=== PATIENT | female | born 1960 | race African-American/Black ===

== ENCOUNTER 2016-08-13 19:14 | Emergency (ER) | payer BC, OTHER ==
[~2016-08-13] VITALS: Ht 167.6 cm; Wt 98.0 kg
[~2016-08-13 19:14] MED LIST: CIME200 PO; CLIN1CAP6 PO; FEXO180 PO; GLIP1TAB49 PO; GLUCTAB PO; HYDR25TA5 PO; METO50TA PO; PERC10TA27 PO; PERC5TAB12 PO; POTA-243 PO; SIMV20TA PO; TAB-TAB PO
[2016-08-13 19:17] VITALS: BP 129/67; PULSE 90; RESP 18; TEMP 102.8; O2SAT 94
--- NOTE | 2016-08-13 19:40 | PD ---
HPI Chief Complaint: Headache Time Seen by Provider: 19:37 Travel History International Travel<30 days: No Contact w/Intl Traveler<30days: No Traveled to known affect area: No History of Present Illness HPI 55-year-old black female presents to emergency department with a three-day history of fever and chills, headache, slight cough, nausea, myalgias, arthralgias and generalized malaise. She has not taken anything today for her fever. She denies any ear pain or sore throat. No shortness of breath or wheezing. No cough, vomiting, abdominal pain, dysuria or frequency. No rashes or lesions. She is a diabetic. Her blood sugars were less than 200 earlier today. She denies any focal numbness, tingling or weakness. PFSH Past Medical History Narrative Medical Right breast cancer, chemotherapy, radiation with mastectomy, hypertension, hypercholesterolemia, diabetes, GERD Blood Disorders: No Cancer: Yes (RIGHT BREAST) Cardiovascular Problems: No Chemotherapy: Yes (LAST 2006) Diabetes: Yes Patient Takes Glucophage: Yes Diminished Hearing: No Endocrine: Yes Gastrointestinal Disorders: Yes (GERD) GERD: Yes Genitourinary: No Hepatitis: No Hiatal Hernia: No Hypertension: Yes Immune Disorder: No Musculoskeletal: Yes (ARTHRITIS, PAINFUL LEFT KNEE) Neurologic: Yes (NEUROPATHY FEET) Psychiatric: Yes (CLAUSTRAPHOBIA, PANIC ATTACKS) Reproductive: No Respiratory: No Radiation Therapy: Yes (LAST REC'D 12/21) Thyroid Disease: No Ulcer: Yes Tetanus Vaccination: Unknown ?: Not Menopausal: Yes Tubal Ligation: Yes Past Surgical History AICD: No Body Medical Devices: INFUSE A PORT Section: Yes (X2) Gynecologic Surgery: Yes (TUBAL LIG., X 2) Joint Replacement: No Pacemaker: No Other Surgery: Yes (R MASTECTOMY 2006, INFUSAPORT IN PLACE LEFT UPPER CHEST) Social History Alcohol Use: No Tobacco Use: No Substance Use: No Allergies-Medications (Allergen,Severity, Reaction): Coded Allergies: Aspirin (Verified Allergy, Severe, NONE DUE TO COUMADIN, 08/13/16) pt says she get n/v and upset stomach Lortab (Verified Allergy, Severe, VOMITING, 08/13/16) Morphine (Verified Allergy, Severe, VOMITING, 08/13/16) Reported Meds & Prescriptions Reported Meds & Active Scripts Active Percocet (Oxycodone-Acetaminophen) 5-325 mg Tab 2 Tab PO Q6H PRN Clindamycin (Clindamycin HCl) 300 Mg Cap 300 Mg PO Q6H Continue until swelling has resolved Hydrochlorothiazide 25 Mg Tab 25 Mg PO DAILY Glucophage XR (Metformin HCl) 500 Mg Lucrecia 500 Mg PO BID Metoprolol Tartrate 50 Mg Tab 50 Mg PO BID Simvastatin 20 Mg Tab 20 Mg PO DAILY Klor-Con 10 (Potassium Chloride) 10 Meq Tab 10 Meq PO DAILY Review of Systems Except as stated in HPI: all other systems reviewed are Neg Physical Exam Narrative GENERAL: Well-developed, well-nourished in no apparent distress. Nontoxic appearing. HEAD: Normocephalic, atraumatic. No pain on percussion of the sinuses. EYES: Pupils equal round and reactive. Extraocular motions intact. No scleral icterus. No injection or drainage. ENT: Nose clear. Throat without erythema, tonsillar hypertrophy or exudate. Uvula midline. Airway patent. NECK: Trachea midline. Supple, nontender, moves head freely. No central bony tenderness or spasm. No rigidity. CARDIOVASCULAR: Regular rate and rhythm without murmurs, gallops, or rubs. RESPIRATORY: Clear to auscultation. Breath sounds equal bilaterally. No wheezes , rales, or rhonchi. GASTROINTESTINAL: Abdomen soft, non-tender, nondistended. No hepato-splenomegaly , or palpable masses. No guarding. EXTREMITIES: No clubbing, cyanosis, or edema. No joint tenderness. BACK: Nontender without deformity. No flank tenderness. NEUROLOGICAL: Awake, alert and oriented x 3 .Cranial nerves grossly intact. Motor and sensory grossly within normal limits. Normal speech. Data Data Last Documented VS Vital Signs Date Time Temp Pulse Resp B/P Pulse Ox O2 Delivery O2 Flow Rate FiO2 08/13/16 20:40 100.8 08/13/16 19:24 90 18 94 Room Air 08/13/16 19:17 129/67 Orders Influenzae A/B Antigen (08/13/16 19:35) Ibuprofen (Motrin) (08/13/16 19:45) MDM Medical Decision Making Medical Screen Exam Complete: Yes Emergency Medical Condition: Yes Medical Record Reviewed: Yes Interpretation(s) Influenza: Negative Differential Diagnosis MDM: High Differential diagnoses: Meningitis, migraine, tension headache influenza, bronchitis, URI Narrative Course Patient's exam and history is inconsistent with meningitis. She appears to have a viral process. She has not taking anything for her fever today. She states that aspirin at substance or stomach. She does not have any respiratory issues with aspirin. She will be given Motrin 800 mg by mouth and influenza swab will be performed. The patient's temperature is coming down. She states her headache is only minimally improved. Her is now present and states that he is concerned that she may have low potassium. He states that she has had low potassium multiple times in the past. I've agreed to give her 40 mEq of potassium by mouth now and one Percocet. She states that she is allergic to hydrocodone but can take Percocet. This acute febrile illness, cephalgia Diagnosis Primary Impression: Acute febrile illness Additional Impression: Cephalgia Qualified Code: R51 - Acute nonintractable headache, unspecified headache type Patient Instructions: General Instructions Additional Instructions: Rest. Increase fluids. Alternate Tylenol and ibuprofen every 4 hours for the next 1-2 days. Recheck with your doctor Tuesday. Return to the ER over the weekend if any problems develop. Disposition: 01 DISCHARGE HOME Condition: Stable Ag Azar Aug 13, 2016 19:40
[2016-08-13] MEDS ORDERED: IBUPROFEN 800 MG TAB PO ONE (19:45)
[2016-08-13 20:40] VITALS: TEMP 100.8
[2016-08-13] MEDS ORDERED: POTASSIUM CHLORIDE 20 MEQ CONTROLLED RELEASE TAB PO ONE (21:00)
[2016-08-13] MEDS ORDERED: oxyCODONE/ACETAMINOPHEN 5 MG/325 MG TAB PO ONE (21:00)
== END 2016-08-13 21:33 | disposition home or self-care (01) ==
LOC: NEPK 19:14
DX: R50.9 Fever, unspecified (principal); R51 Headache; R05 Cough; R11.0 Nausea; M79.1 Myalgia; R53.81 Other malaise; I10 Essential (primary) hypertension; E11.40 Type 2 diabetes mellitus with diabetic neuropathy, unspecified; K21.9 Gastro-esophageal reflux disease without esophagitis
CPT/HCPCS: 87804; 99283